=== PATIENT | female | born 1950 | race Caucasian/White ===

== ENCOUNTER 2017-03-10 08:04 | Emergency (ER) | payer OTHER, SELFPAY ==
[~2017-03-10] VITALS: Ht 157.5 cm; Wt 52.3 kg
[~2017-03-10 08:04] MED LIST: /HYDR10TAB PO; ATIV2TAB PO; BENA25CA PO; CORE25TA PO; CYCL5TAB PO; FOLI1TAB86 PO; HYDRO50TAB PO; LOSA50TA20 PO; NICO21PAT EXT; OXAZ10CA PO; OXAZ15CA PO; VITA100T2 PO; [UNRECOGNIZED DRUG - OTHER] OR; [UNRECOGNIZED DRUG - OTHER] TOP
[2017-03-10 08:27] VITALS: BP 188/110
[2017-03-10] MEDS ORDERED: COLA100C5 PO (08:50)
[2017-03-10] MEDS ORDERED: NORCOTAB PO (08:50)
[2017-03-10] MEDS ORDERED: ANUS25SU PR (08:50)
[2017-03-10] MEDS ORDERED: NORCO, ANEXSIA 5/325MG TABLET (HYDROcodone/ACETAMINOPHEN) PO ONE (09:00)
[2017-03-10] MEDS ORDERED: DOCUSATE SODIUM 100 MG CAP PO ONE (09:00)
== END 2017-03-10 09:00 | disposition home or self-care (01) ==
LOC: M ED 08:04
DX: K64.5 Perianal venous thrombosis (principal); K64.8 Other hemorrhoids; I10 Essential (primary) hypertension; Z91.19 Patient's noncompliance with other medical treatment and regimen; F17.210 Nicotine dependence, cigarettes, uncomplicated

== ENCOUNTER → 2017-04-15 | Outpatient (CLI) | payer MEDICARE | LOC: M ONCR 13:10 | DX: C44.520 Squamous cell carcinoma of anal skin (principal) | CPT/HCPCS: G0463 ==

== ENCOUNTER → 2017-04-21 | Outpatient (REF) | payer MEDICARE ==
[2017-04-21 15:29] LABS: INR 0.89; PROTHROMBIN TIME 12.1 SECONDS (12.4-14.5)
[2017-04-21 15:30] LABS: PARTIAL THROMBOPLASTIN TIME 31.3 SECONDS (26.8-37.9)
== END ==
LOC: M LAB REF 15:07
DX: C21.1 Malignant neoplasm of anal canal (principal)
CPT/HCPCS: 85610

== ENCOUNTER → 2017-04-27 | Outpatient (CLI) | payer MEDICAID, SELFPAY ==
[~2017-04-27] MED LIST changes: -/HYDR10TAB PO; -ATIV2TAB PO; -BENA25CA PO; -CORE25TA PO; -CYCL5TAB PO; -FOLI1TAB86 PO; -HYDRO50TAB PO; +LIDOCAINE 2% MDV 20 ML VIAL As Ordered; -LOSA50TA20 PO; +MIDAZOLAM INJ 2 MG/2 ML VIAL (J2250) As Ordered; -NICO21PAT EXT; -OXAZ10CA PO; -OXAZ15CA PO; -VITA100T2 PO; -[UNRECOGNIZED DRUG - OTHER] OR; -[UNRECOGNIZED DRUG - OTHER] TOP; +ceFAZolin 1GM INJ (J0690 PER 500MG) As Ordered; +fentaNYL 100 MCG/2 ML INJECTION (J3010) As Ordered
== END | disposition home or self-care (01) ==
LOC: M IRPRO 07:00
DX: C21.0 Malignant neoplasm of anus, unspecified (principal)
CPT/HCPCS: 36561

== ENCOUNTER 2017-05-13 09:00 | Outpatient (RCR) | payer MEDICAID | END 2017-05-19 | LOC: M ONCR 09:00 | DX: C21.0 Malignant neoplasm of anus, unspecified (principal) | CPT/HCPCS: 77334 ==

== ENCOUNTER → 2017-05-13 | Outpatient (CLI) | payer MEDICAID | LOC: M RAD 10:17 | DX: C21.0 Malignant neoplasm of anus, unspecified (principal); Z88.2 Allergy status to sulfonamides ==

== ENCOUNTER → 2017-05-18 | Outpatient (CLI) | payer MEDICAID | LOC: M PLARAD 11:28 | DX: C21.0 Malignant neoplasm of anus, unspecified (principal); R92.8 Other abnormal and inconclusive findings on diagnostic imaging of breast | CPT/HCPCS: 78815 ==

== ENCOUNTER 2017-05-20 10:01 | Outpatient (RCR) | payer MEDICARE, MEDICAID | END 2017-06-16 | LOC: M ONCR 10:01 | DX: C21.0 Malignant neoplasm of anus, unspecified (principal) | CPT/HCPCS: 77300 ==

== ENCOUNTER → 2017-06-03 | Outpatient (CLI) | payer MEDICARE, MEDICAID ==
[~2017-06-03] MED LIST changes: +LIDOCAINE 1% MDV 20ML VIAL As Ordered; -LIDOCAINE 2% MDV 20 ML VIAL As Ordered; -MIDAZOLAM INJ 2 MG/2 ML VIAL (J2250) As Ordered; -ceFAZolin 1GM INJ (J0690 PER 500MG) As Ordered; -fentaNYL 100 MCG/2 ML INJECTION (J3010) As Ordered
== END ==
LOC: M RAD 08:07 → M RADPRO 08:07
DX: C50.811 Malignant neoplasm of overlapping sites of right female breast (principal); C50.919 Malignant neoplasm of unspecified site of unspecified female breast (principal); N63.10 Unspecified lump in the right breast, unspecified quadrant; Z85.038 Personal history of other malignant neoplasm of large intestine; Z79.899 Other long term (current) drug therapy; Z88.2 Allergy status to sulfonamides
CPT/HCPCS: 19083

== ENCOUNTER → 2017-06-04 | Outpatient (CLI) | payer MEDICARE, MEDICAID | LOC: M RAD 10:20 | DX: N63.10 Unspecified lump in the right breast, unspecified quadrant (principal); C50.811 Malignant neoplasm of overlapping sites of right female breast; C21.0 Malignant neoplasm of anus, unspecified | CPT/HCPCS: 77066 ==

== ENCOUNTER 2017-06-17 10:45 | Outpatient (RCR) | payer MEDICARE, MEDICAID | END 2017-07-17 | LOC: M ONCR 10:45 | DX: C21.0 Malignant neoplasm of anus, unspecified (principal) | CPT/HCPCS: 77336 ==

== ENCOUNTER → 2017-07-01 | Outpatient (CLI) | payer MEDICARE, MEDICAID | LOC: M WHC 10:25 | DX: Z79.811 Long term (current) use of aromatase inhibitors (principal); Z85.3 Personal history of malignant neoplasm of breast | CPT/HCPCS: 77080 ==

== ENCOUNTER → 2017-08-12 | Outpatient (CLI) | payer MEDICARE, MEDICAID ==
[~2017-08-12] MED LIST changes: -LIDOCAINE 1% MDV 20ML VIAL As Ordered; +LIDOCAINE 2% MDV 20 ML VIAL As Ordered
== END | disposition home or self-care (01) ==
LOC: M IRPRO 10:57
DX: Z45.2 Encounter for adjustment and management of vascular access device (principal); C21.0 Malignant neoplasm of anus, unspecified
CPT/HCPCS: 36590

== ENCOUNTER → 2017-08-18 | Outpatient (CLI) | payer MEDICARE, MEDICAID | LOC: M ONCR 10:29 | DX: C21.0 Malignant neoplasm of anus, unspecified (principal) | CPT/HCPCS: G0463 ==

== ENCOUNTER → 2017-08-24 | Outpatient (CLI) | payer MEDICARE, MEDICAID ==
[2017-08-24 11:03] LABS: HEMATOCRIT 32.5 % (36.0-47.0); HEMOGLOBIN 11.3 g/dl (12.0-15.5); MEAN CORPUSCULAR HEMOGLOBIN 32.5 pg (27.0-33.0); MEAN CORPUSCULAR HGB CONC 34.8 g/dl (32.0-36.5); MEAN CORPUSCULAR VOLUME 93.4 fl (80.0-96.0); PLATELET COUNT, AUTOMATED 473 10^3/uL (150-450); RED BLOOD COUNT 3.48 10^6/uL (4.00-5.40); RED CELL DISTRIBUTION WIDTH 17.4 % (11.5-14.5); WHITE BLOOD COUNT 7.4 10^3/uL (4.0-10.0)
[2017-08-24 11:16] LABS: INR 0.91; PROTHROMBIN TIME 12.3 SECONDS (12.4-14.5)
[2017-08-24 11:36] LABS: TOTAL 25(OH) VITAMIN D 21.1 NG/ML (30.0-100.0)
[2017-08-24 11:45] LABS: ALBUMIN 3.1 GM/DL (3.2-5.2); ALBUMIN/GLOBULIN RATIO 0.84 (1.00-1.93); ALKALINE PHOSPHATASE 78 U/L (45-117); ALT/SGPT 15 U/L (12-78); ANION GAP 6 MEQ/L (8-16); AST/SGOT 19 U/L (7-37); BILIRUBIN,TOTAL 0.3 MG/DL (0.2-1.0); BLOOD UREA NITROGEN 5 MG/DL (7-18); CALCIUM LEVEL 9.1 MG/DL (8.8-10.2); CARBON DIOXIDE LEVEL 30 MEQ/L (21-32); CHLORIDE LEVEL 99 MEQ/L (98-107); CHOLESTEROL LEVEL 298 MG/DL (<200); CHOLESTEROL RISK RATIO 6.081 (<5); CREATININE FOR GFR 0.61 MG/DL (0.55-1.30); GLOMERULAR FILTRATION RATE > 60.0 (>45); GLUCOSE, FASTING 99 MG/DL (70-100); HDL CHOLESTEROL 49 MG/DL (>40); LDL CHOLESTEROL 210.2 MG/DL (<100); NON-HDL-C 249 MG/DL; POTASSIUM SERUM 3.2 MEQ/L (3.5-5.1); SODIUM LEVEL 135 MEQ/L (136-145); TOTAL PROTEIN 6.8 GM/DL (6.4-8.2); TRIGLYCERIDES LEVEL 194 MG/DL (<150)
== END ==
LOC: M LAB 10:35
DX: Z01.818 Encounter for other preprocedural examination (principal); I10 Essential (primary) hypertension; Z79.01 Long term (current) use of anticoagulants
CPT/HCPCS: 71046

== ENCOUNTER → 2017-11-25 | Outpatient (CLI) | payer MEDICARE, MEDICAID ==
[2017-11-25 10:07] LABS: ANION GAP 10 MEQ/L (8-16); BLOOD UREA NITROGEN 7 MG/DL (7-18); CALCIUM LEVEL 9.5 MG/DL (8.8-10.2); CARBON DIOXIDE LEVEL 29 MEQ/L (21-32); CHLORIDE LEVEL 99 MEQ/L (98-107); GLOMERULAR FILTRATION RATE > 60.0 (>45); GLUCOSE, FASTING 96 MG/DL (70-100); POTASSIUM SERUM 3.4 MEQ/L (3.5-5.1); SODIUM LEVEL 138 MEQ/L (136-145)
== END ==
LOC: M LAB 08:53
DX: Z01.812 Encounter for preprocedural laboratory examination (principal); Z85.048 Personal history of other malignant neoplasm of rectum, rectosigmoid junction, and anus
CPT/HCPCS: 80048

== ENCOUNTER → 2018-01-04 | Outpatient (CLI) | payer MEDICARE ==
[2018-01-04 09:30] LABS: HEMATOCRIT 34.8 % (36.0-47.0); HEMOGLOBIN 11.7 g/dl (12.0-15.5); MEAN CORPUSCULAR HEMOGLOBIN 28.7 pg (27.0-33.0); MEAN CORPUSCULAR HGB CONC 33.6 g/dl (32.0-36.5); MEAN CORPUSCULAR VOLUME 85.3 fl (80.0-96.0); PLATELET COUNT, AUTOMATED 514 10^3/uL (150-450); RED BLOOD COUNT 4.08 10^6/uL (4.00-5.40); RED CELL DISTRIBUTION WIDTH 14.3 % (11.5-14.5); WHITE BLOOD COUNT 6.6 10^3/uL (4.0-10.0)
[2018-01-04 09:42] LABS: INR 0.86; PROTHROMBIN TIME 11.8 SECONDS (12.1-14.4)
[2018-01-04 10:02] LABS: ALBUMIN 3.7 GM/DL (3.2-5.2); ALBUMIN/GLOBULIN RATIO 0.95 (1.00-1.93); ALKALINE PHOSPHATASE 94 U/L (45-117); ALT/SGPT 17 U/L (12-78); ANION GAP 10 MEQ/L (8-16); AST/SGOT 15 U/L (7-37); BILIRUBIN,TOTAL 0.3 MG/DL (0.2-1.0); BLOOD UREA NITROGEN 7 MG/DL (7-18); CALCIUM LEVEL 9.3 MG/DL (8.8-10.2); CARBON DIOXIDE LEVEL 29 MEQ/L (21-32); CHLORIDE LEVEL 100 MEQ/L (98-107); CHOLESTEROL LEVEL 278 MG/DL (<200); CREATININE FOR GFR 0.79 MG/DL (0.55-1.30); GLOMERULAR FILTRATION RATE > 60.0 (>45); GLUCOSE, FASTING 96 MG/DL (70-100); HDL CHOLESTEROL 51 MG/DL (>40); LDL CHOLESTEROL 194 MG/DL (<100); NON-HDL-C 227 MG/DL; POTASSIUM SERUM 3.6 MEQ/L (3.5-5.1); SODIUM LEVEL 139 MEQ/L (136-145); TOTAL PROTEIN 7.6 GM/DL (6.4-8.2); TRIGLYCERIDES LEVEL 166 MG/DL (<150)
== END ==
LOC: M LAB 08:24
DX: Z01.818 Encounter for other preprocedural examination (principal); I10 Essential (primary) hypertension; M54.30 Sciatica, unspecified side; M51.36 Other intervertebral disc degeneration, lumbar region
CPT/HCPCS: 72110

== ENCOUNTER 2018-01-19 07:16 | Day surgery (SDC) | payer MEDICARE, MEDICAID ==
[~2018-01-19 07:16] MED LIST changes: +ACETAMINOPHEN 325 MG TAB PO; -LIDOCAINE 2% MDV 20 ML VIAL As Ordered; +PHENYLEPHRINE HCL 10 % OPHTH. SOL 5ML OD; +PROPARACAINE 0.5% OPHTH SOL 15ML OD
[2018-01-19] MEDS ORDERED: MIDAZOLAM INJ 2 MG/2 ML VIAL (J2250) As Ordered (07:17)
[2018-01-19] MEDS: PHENYLEPHRINE 2.5% OPHTH SOL 2ML OD (08:06)
[2018-01-19] MEDS: CYCLOPENTOLATE 2% OPHTH SOLN 2ML BTL OD (08:06)
[2018-01-19] MEDS: TROPICAMIDE 1% OPHTH SOLN 2ML OD (08:06)
[2018-01-19] MEDS: OFLOXACIN 0.3 % (OCUFLOX) OPTH SOL 5ML OD (08:06)
[2018-01-19] MEDS: LIDOCAINE 3.5 % 1ML OPHTH TOPICAL GEL OU (08:06)
[2018-01-19] MEDS: POVIDONE-IODINE 5% OPHTH PREP SOL 30ML As Ordered (09:22)
[2018-01-19] MEDS: BALANCED SALT IRRIGATION SOLUTION 500ML BAG (FOR OR EYE MACHINE) As Ordered (09:24)
[2018-01-19] MEDS: HEALON DUET (HEALON 10MG/ML 0.55ML & HEALON ENDOCOAT 30MG/ML 0.85ML) As Ordered (09:24)
[2018-01-19] MEDS: CEFUROXIME 1MG/0.1ML INTRACAMERAL INJ As Ordered (09:24)
[2018-01-19] MEDS: LIDOCAINE 1% SDV 5 ML VIAL As Ordered (09:24)
[2018-01-19] MEDS ORDERED: fentaNYL 100 MCG/2 ML INJECTION (J3010) As Ordered (09:24)
[2018-01-19] MEDS: TRYPAN BLUE 0.06 % 2.25 ML OPHTH SYR (VISIONBLUE) As Ordered (09:24)
[2018-01-19] MEDS ORDERED: ONDANSETRON 4MG/2ML VIAL (J2405) IV (10:00)
[2018-01-19] MEDS ORDERED: TRIMETHOBENZAMIDE 300 MG CAP PO (10:00)
[2018-01-19] MEDS: KETOROLAC 0.5% OPHTH SOLN OD (10:00)
== END 2018-01-19 10:16 | disposition home or self-care (01) ==
LOC: M SDC 07:16
DX: H25.11 Age-related nuclear cataract, right eye (principal); I10 Essential (primary) hypertension; E03.9 Hypothyroidism, unspecified; C21.0 Malignant neoplasm of anus, unspecified; C50.919 Malignant neoplasm of unspecified site of unspecified female breast; M12.9 Arthropathy, unspecified; Z88.2 Allergy status to sulfonamides; Z79.899 Other long term (current) drug therapy; Z92.21 Personal history of antineoplastic chemotherapy; Z92.3 Personal history of irradiation; Z78.0 Asymptomatic menopausal state
CPT/HCPCS: 66984

== ENCOUNTER 2018-02-16 06:40 | Day surgery (SDC) | payer MEDICARE, MEDICAID ==
[2018-02-16] MEDS ORDERED: CYCLOPENTOLATE 2% OPHTH SOLN 2ML BTL OS (07:00)
[2018-02-16] MEDS ORDERED: PHENYLEPHRINE HCL 10 % OPHTH. SOL 5ML OS (07:00)
[2018-02-16] MEDS: PHENYLEPHRINE 2.5% OPHTH SOL 2ML OS (07:22)
[2018-02-16] MEDS: TROPICAMIDE 1% OPHTH SOLN 2ML OS (07:23)
[2018-02-16] MEDS: LIDOCAINE 3.5 % 1ML OPHTH TOPICAL GEL OU (07:23)
[2018-02-16] MEDS: OFLOXACIN 0.3 % (OCUFLOX) OPTH SOL 5ML OS (07:23)
[2018-02-16] MEDS ORDERED: fentaNYL 100 MCG/2 ML INJECTION (J3010) As Ordered (08:23)
[2018-02-16] MEDS ORDERED: MIDAZOLAM INJ 2 MG/2 ML VIAL (J2250) As Ordered (08:23)
[2018-02-16] MEDS: POVIDONE-IODINE 5% OPHTH PREP SOL 30ML As Ordered (08:46)
[2018-02-16] MEDS: LIDOCAINE 1% SDV 5 ML VIAL As Ordered (08:48)
[2018-02-16] MEDS: BALANCED SALT IRRIGATION SOLUTION 500ML BAG (FOR OR EYE MACHINE) As Ordered (08:48)
[2018-02-16] MEDS: HEALON DUET (HEALON 10MG/ML 0.55ML & HEALON ENDOCOAT 30MG/ML 0.85ML) As Ordered (08:48)
[2018-02-16] MEDS: CEFUROXIME 1MG/0.1ML INTRACAMERAL INJ As Ordered (08:49)
== END 2018-02-16 09:29 | disposition home or self-care (01) ==
LOC: M SDC 06:40
DX: H25.12 Age-related nuclear cataract, left eye (principal); I10 Essential (primary) hypertension; E03.9 Hypothyroidism, unspecified; Z92.3 Personal history of irradiation; Z92.21 Personal history of antineoplastic chemotherapy; Z79.899 Other long term (current) drug therapy; F17.210 Nicotine dependence, cigarettes, uncomplicated; Z85.3 Personal history of malignant neoplasm of breast; Z85.09 Personal history of malignant neoplasm of other digestive organs
CPT/HCPCS: 66984

== ENCOUNTER → 2018-05-03 | Outpatient (CLI) | payer MEDICARE, MEDICAID ==
[~2018-05-03] MED LIST changes: +/HYDR10TAB PO; -ACETAMINOPHEN 325 MG TAB PO; +AMBI10TA PO; +AMLO10TA5 PO; +ANUS25SU PR; +ATIV2TAB PO; +BENA25CA PO; +COLA100C5 PO; +CORE25TA PO; +CYCL5TAB PO; +EXEM25TA PO; +FOLI1TAB86 PO; +HYDR12CA PO; +HYDRO50TAB PO; +K-TA1TAB PO; +LETR2.5T2 PO; +LEVO25TA5 PO; +LOSA50TA20 PO; +NICO21PAT EXT; +NORCOTAB PO; +OXAZ10CA PO; +OXAZ15CA PO; +PERC5TAB12 PO; -PHENYLEPHRINE HCL 10 % OPHTH. SOL 5ML OD; +POTA10TA67 PO; -PROPARACAINE 0.5% OPHTH SOL 15ML OD; +TAMO20TA8 PO; +VITA100T2 PO; +VITA50005 PO; +[UNRECOGNIZED DRUG - CODE] PO; +[UNRECOGNIZED DRUG - OTHER] OR; +[UNRECOGNIZED DRUG - OTHER] TOP
[2018-05-03 09:02] LABS: HEMATOCRIT 38.3 % (36.0-47.0); MEAN CORPUSCULAR HEMOGLOBIN 29.1 pg (27.0-33.0); MEAN CORPUSCULAR HGB CONC 33.9 g/dl (32.0-36.5); MEAN CORPUSCULAR VOLUME 85.7 fl (80.0-96.0); PLATELET COUNT, AUTOMATED 465 10^3/uL (150-450); RED BLOOD COUNT 4.47 10^6/uL (4.00-5.40); WHITE BLOOD COUNT 8.3 10^3/uL (4.0-10.0)
--- NOTE | 2018-05-03 09:13 | REP ---
Chest two views HISTORY: Hypertension Comparison: 08/24/2017 The lungs are clear. The heart is normal in size. The pulmonary vasculature is normal in appearance. The bony structure is intact. IMPRESSION: No acute disease. Electronically Signed by Bharath Marcelo MD 05/03/2018 09:04 A
[2018-05-03 09:14] LABS: INR 0.91; PROTHROMBIN TIME 12.3 SECONDS (12.1-14.4)
[2018-05-03 09:32] LABS: ALT/SGPT 18 U/L (12-78); BILIRUBIN,TOTAL 0.5 MG/DL (0.2-1.0); BLOOD UREA NITROGEN 11 MG/DL (7-18); CALCIUM LEVEL 9.2 MG/DL (8.8-10.2); CARBON DIOXIDE LEVEL 27 MEQ/L (21-32); CHLORIDE LEVEL 101 MEQ/L (98-107); CHOLESTEROL LEVEL 316 MG/DL (<200); CHOLESTEROL RISK RATIO 6.448 (<5); CREATININE FOR GFR 0.86 MG/DL (0.55-1.30); GLOMERULAR FILTRATION RATE > 60.0 (>45); GLUCOSE, FASTING 100 MG/DL (70-100); HDL CHOLESTEROL 49 MG/DL (>40); LDL CHOLESTEROL 229 MG/DL (<100); NON-HDL-C 267 MG/DL; POTASSIUM SERUM 3.6 MEQ/L (3.5-5.1); SODIUM LEVEL 137 MEQ/L (136-145); TOTAL PROTEIN 7.5 GM/DL (6.4-8.2); TRIGLYCERIDES LEVEL 192 MG/DL (<150)
[2018-05-03 12:04] LABS: HEMOGLOBIN A1c 5.6 %
[2018-05-03 14:12] LABS: TOTAL 25(OH) VITAMIN D 82.2 NG/ML (30.0-100.0)
--- NOTE | 2018-05-04 08:24 | ECGEPIP ---
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
== END ==
LOC: M LAB 08:32
PROVIDERS: ATTEND Family Medicine
DX: I10 Essential (primary) hypertension (principal); E03.9 Hypothyroidism, unspecified; R53.83 Other fatigue; Z79.899 Other long term (current) drug therapy

== ENCOUNTER 2018-06-12 20:54 | Inpatient (IN) | payer MEDICARE, MEDICAID ==
[~2018-06-12] VITALS: Ht 157.5 cm; Wt 46.3 kg
[2018-06-12] MEDS ORDERED: ACET1TAB16 PO (21:20)
[2018-06-12] MEDS ORDERED: SPIR-10 PO (21:20)
[2018-06-12] MEDS ORDERED: TETRACAINE 0.5% OPHTH SOLN 4ML OU ONE (21:30)
[2018-06-12] MEDS ORDERED: TROPICAMIDE 0.5% OPHTH SOLN 15 ML OU ONE (21:30)
[2018-06-12] MEDS ORDERED: LORazepam 1 MG TAB PO STA (22:18)
[2018-06-12 23:28] LABS: BASO # 0.1 10^3/uL (0.0-0.2); BASO % 0.5 % (0.0-1.0); EOS # 0.1 10^3/uL (0.0-0.50); EOS % 0.3 % (0.0-3.0); HEMATOCRIT 36.4 % (36.0-47.0); HEMOGLOBIN 12.5 g/dl (12.0-15.5); LYMPH # 1.6 10^3/uL (1.5-4.5); LYMPH % 10.5 % (24.0-44.0); MEAN CORPUSCULAR HEMOGLOBIN 28.7 pg (27.0-33.0); MEAN CORPUSCULAR HGB CONC 34.3 g/dl (32.0-36.5); MEAN CORPUSCULAR VOLUME 83.7 fl (80.0-96.0); MONO % 6.5 % (0.0-5.0); NEUTROPHILS # 12.2 10^3/uL (1.8-7.7); NEUTROPHILS % 81.7 % (36.0-66.0); PLATELET COUNT, AUTOMATED 562 10^3/uL (150-450); RED BLOOD COUNT 4.35 10^6/uL (4.00-5.40)
[2018-06-12 23:38] LABS: INR 0.98; PROTHROMBIN TIME 13.1 SECONDS (12.1-14.4)
[2018-06-12 23:39] LABS: PARTIAL THROMBOPLASTIN TIME 33.7 SECONDS (25.4-37.6)
[2018-06-12 23:47] LABS: BLOOD UREA NITROGEN 7 MG/DL (7-18); CALCIUM LEVEL 9.4 MG/DL (8.8-10.2); CARBON DIOXIDE LEVEL 23 MEQ/L (21-32); CHLORIDE LEVEL 106 MEQ/L (98-107); CREATININE FOR GFR 0.82 MG/DL (0.55-1.30); GLOMERULAR FILTRATION RATE > 60.0 (>45); GLUCOSE, FASTING 108 MG/DL (70-100); SODIUM LEVEL 137 MEQ/L (136-145)
[2018-06-13] MEDS ORDERED: LORazepam 1 MG TAB PO STA
--- NOTE | 2018-06-13 01:02 | REPVR ---
EXAM: MR Angiogram Head Without Contrast, Arteries EXAM DATE/TIME: 06/13/2018 12:20 AM CLINICAL HISTORY: 68 years old, female; Signs and symptoms; Visual disturbance; Other visual defect; Patient HX: PT states blurry vision for over a week, nki, no other symptoms no priors since 2013, images sent to ad; Additional info: Visual anomaly TECHNIQUE: MR angiogram head without contrast. Exam focused on the arteries. MIP reconstructed images were created and reviewed. COMPARISON: MRA BRAIN W/O CONTRAST 07/24/2013 12:57 PM FINDINGS: Anterior circulation: Normal flow signal and luminal caliber in the petrous, cavernous and supraclinoid internal carotid arteries. Normal appearance of the anterior cerebral artery branches and middle cerebral artery branches through the MCA trifurcations. No occlusion, high-grade focal stenosis or dissection. No aneurysm. Posterior circulation: Normal distal vertebral arteries, with patent normal caliber basilar artery, and normal superior cerebellar and posterior cerebral arteries. No occlusion, high-grade stenosis or aneurysm. Right T1 segment is diminutive and the right TABLE TENDER SLUDGE is predominantly supplied by a patent posterior communicating artery IMPRESSION: Unremarkable MR angiogram of the [place] and intracranial vertebrobasilar system. No interval change. Electronically signed by: Boris Nelson On 06/13/2018 01:02:10 AM
--- NOTE | 2018-06-13 01:05 | REPVR ---
EXAM: MR Head Without Contrast EXAM DATE/TIME: 06/13/2018 12:20 AM CLINICAL HISTORY: 68 years old, female; Signs and symptoms; Visual disturbance; Patient HX: PT states blurry vision for over a week, nki, no other symptoms no priors since 2013, images sent to [facility]; Additional info: Visual anomaly TECHNIQUE: MR of the head without contrast. COMPARISON: MRI-Brain without Contrast 07/24/2013 1:06 PM FINDINGS: Multiple abnormal foci of increased diffusion and decreased ADC map signal are present in the right occipital and posterior right parietal lobe consistent with acute nonhemorrhagic small vessel infarcts, which may be embolic. Midline structures and cerebellar tonsillar position appear normal. Ventricles, cisterns and sulci are symmetrically prominent. No intracranial mass, midline shift or abnormal extra-axial fluid. No acute intracranial hemorrhage. Mild pattern of increased T2 and flair signal in supratentorial and moraima white matter. Optic chiasm and pituitary infundibulum appear normal. Normal vascular flow voids in major intracranial arteries and dural venous sinuses. Paranasal sinuses are clear. Mastoid air cells are normally aerated. Optic globes and orbits are unremarkable. IMPRESSION: Multiple small acute nonhemorrhagic infarcts, right occipital and right parietal, suggesting posterior circulation embolic process. Minimal mass effect. Mild chronic microangiopathic supratentorial white matter changes Electronically signed by: Boris Nelson On 06/13/2018 01:04:36 AM
[2018-06-13] MEDS ORDERED: ASPIRIN 325 MG TAB PO ONE (01:30)
[2018-06-13] MEDS ORDERED: K-TA1TAB PO (01:52)
[2018-06-13] MEDS ORDERED: LEVO50TA5 PO (01:52)
[2018-06-13] MEDS ORDERED: ZOLP5TAB PO (01:53)
[2018-06-13] MEDS ORDERED: ACETAMINOPH W/CODEINE #3 TAB UD PO PRN (02:15)
[2018-06-13] MEDS: ATORVASTATIN 20 MG TAB PO SCH ×2 (02:34→20:40)
[2018-06-13] MEDS: zolPIDEM TARTRATE 5 MG TAB PO SCH ×2 (02:34→20:40)
[2018-06-13 03:27] LABS: CHOLESTEROL LEVEL 304 MG/DL (<200); CHOLESTEROL RISK RATIO 7.238 (<5); HDL CHOLESTEROL 42 MG/DL (>40); LDL CHOLESTEROL 242 MG/DL (<100); NON-HDL-C 262 MG/DL; TRIGLYCERIDES LEVEL 100 MG/DL (<150)
[2018-06-13 03:30] VITALS: BP 153/88
[2018-06-13] MEDS: LEVOTHYROXINE 50MCG TABLET (0.05MG) PO SCH (05:54)
[2018-06-13 06:50] LABS: HEMATOCRIT 34.1 % (36.0-47.0); HEMOGLOBIN 11.6 g/dl (12.0-15.5); MEAN CORPUSCULAR HEMOGLOBIN 28.8 pg (27.0-33.0); MEAN CORPUSCULAR VOLUME 84.6 fl (80.0-96.0); PLATELET COUNT, AUTOMATED 494 10^3/uL (150-450); RED BLOOD COUNT 4.03 10^6/uL (4.00-5.40); WHITE BLOOD COUNT 9.8 10^3/uL (4.0-10.0)
[2018-06-13 07:20] LABS: BLOOD UREA NITROGEN 7 MG/DL (7-18); CALCIUM LEVEL 8.8 MG/DL (8.8-10.2); CARBON DIOXIDE LEVEL 25 MEQ/L (21-32); CHLORIDE LEVEL 106 MEQ/L (98-107); CHOLESTEROL LEVEL 272 MG/DL (<200); CREATININE FOR GFR 0.83 MG/DL (0.55-1.30); GLOMERULAR FILTRATION RATE > 60.0 (>45); GLUCOSE, FASTING 78 MG/DL (70-100); HDL CHOLESTEROL 40 MG/DL (>40); HEMOGLOBIN A1c 5.6 %; LDL CHOLESTEROL 215 MG/DL (<100); NON-HDL-C 232 MG/DL; POTASSIUM SERUM 4.3 MEQ/L (3.5-5.1); SODIUM LEVEL 137 MEQ/L (136-145); TRIGLYCERIDES LEVEL 84 MG/DL (<150)
[2018-06-13 08:00] VITALS: BP 141/71
--- NOTE | 2018-06-13 09:06 | REP ---
Clinical: Acute cerebrovascular infarcts . Technique: Priest scale and color Doppler evaluation using linear high frequency transducer Findings: Two-dimensional priest scale and color images demonstrate moderate mixed bilateral atheromatous plaquing normal with relatively normal laminar flow. Color Doppler interrogation demonstrates normal arterial wave patterns and velocities with no significant spectral broadening. Right vertebral artery not visualized. The left vertebral artery demonstrates normal flow direction. RIGHT (cm/s) LEFT (cm/s) ICA peak systolic velocity 67.9 93.7 ICA diastolic velocity 20.1 23.1 ECA peak systolic velocity 77.6 96.0 CCA peak systolic velocity 59.6 72.3 ICA/CCA ratio 1.1 1.3 Impression: 1. Based on set standards narrowing falls within the less than 50% range. 2. Right vertebral artery not visualized. Electronically Signed by Enzo Villafana MD 06/13/2018 08:57 A
[2018-06-13] MEDS: amLODIPine 10 MG TAB PO SCH (09:11)
[2018-06-13] MEDS: ASPIRIN 81 MG ENTERIC TAB PO SCH (09:11)
[2018-06-13] MEDS: SPIRONOLACTONE 12.5MG PER 1/2 TABLET PO SCH (09:11)
[2018-06-13] MEDS: NICOTINE 21MG/24HR 1 EA TRANSDERMAL TD SCH (11:37)
[2018-06-13 12:00] VITALS: BP 122/70
[2018-06-13 16:00] VITALS: BP 140/79
--- NOTE | 2018-06-13 19:00 | ECGEPIP ---
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 No change from 05/03/18 Electronically Signed On 06-13-2018 19:00:05 EST by Emre Ludwig
[2018-06-13 20:00] VITALS: BP 139/82
[2018-06-13] MEDS: ACETAMINOPHEN TAB 650MG DOSE (2X325MG) PO PRN (21:08)
--- NOTE | 2018-06-13 21:36 | ECHO ---
DATE OF PROCEDURE: 06/13/2018 REFERRING PHYSICIAN: Dr. Jonatan Hernandez INDICATIONS: Cerebrovascular accident. Height 157 cm, weight 48 kg. DIMENSIONS: IVS: 0.9 LV: 3.8 LVPW: 0.9 LA: 3.2 Aorta: 2.5 Mitral E wave velocity: 79 A wave: 109 E prime septal: 5.6 E prime lateral: 6.8 Left atrial volume index: 20 IVC: 0.9 FINDINGS: The study is of good technical quality. Left ventricle is of normal size with normal systolic function, I estimate left ventricular ejection fraction (LVEF) 65-70%. No segmental wall motion abnormalities are appreciated. Right ventricle also appears normal size. Both atria are normal size. Aortic valve is minimally sclerotic but has normal mobility. Mitral and tricuspid valves appear normal. Pulmonic valve was not well seen. No pericardial effusion is noted. Inferior vena cava is normal size. Aortic root appears normal. Aortic arch was not well seen. Abdominal aorta appears normal. Doppler interrogation reveals no aortic stenosis or insufficiency. There is trace mitral and tricuspid insufficiency. Unfortunately quality of TR jet was not sufficient to adequately estimate pulmonary artery pressure. Pulmonic valve was not seen. Mitral inflow pattern and tissue Doppler imaging of mitral annulus revealed grade 1 diastolic dysfunction. CONCLUSIONS: 1. Study is of good technical quality. 2. Normal left ventricular (LV) size with normal LV systolic function and grade 1 diastolic dysfunction. 3. No significant valvular disease. 4. Normal central venous pressure. 5. Unable to estimate pulmonary artery pressure. 6. No obvious explanation for cerebrovascular accident. COMMENT: Subacute bacterial endocarditis (SBE) prophylaxis is not recommended.
[2018-06-14] VITALS: BP 146/86
--- NOTE | 2018-06-14 00:23 | CR ---
DATE OF CONSULTATION: 06/13/2018 REFERRING PROVIDER: Jonatan Hernandez MD REASON FOR CONSULTATION: Suspected stroke. Elyse Ellis is a 68-year-old female with a past medical history significant for past alcohol abuse, ongoing tobacco abuse presenting with the chief complaint of difficulty with her vision. She came to [facility] because she noticed over the last few days that she had trouble with her vision. She is noted on MRI to have multiple acute infarctions of the right occipital and right parietal region. The patient had probable embolic strokes involving the posterior circulation as per radiology. It does appear to be the case after looking at the imaging. Her cholesterol is truly out of control with the total cholesterol of 272, low-density lipoprotein (LDL) of 215, high-density lipoprotein (HDL) of 40, thyroid-stimulating hormone (TSH) of 3.3. The patient has been started on aspirin. She has also been placed on Lipitor 40 mg which she states she has been on in the past. The patient is agreeable to quit smoking. She has a patch on right now. Other than her vision she denies any other acute neurological events. REVIEW OF SYSTEMS: A 14-point review of systems was obtained and is negative except as per history of present illness. PAST MEDICAL HISTORY: Hypertension, hyperlipidemia, chronic neck pain, history of vertigo, history of tobacco abuse, alcohol abuse, an episode of syncope, history of lacunar strokes, chronic neck pain. PAST SURGICAL HISTORY: As per history of present illness. ALLERGIES: No known drug allergies. SOCIAL HISTORY: She smokes one pack of tobacco per day. She averages about three beers per day in the past. She states presently she has stopped drinking. She denies any recreational drug use. FAMILY HISTORY: Mother with ischemic heart disease and kidney disease. ALLERGIES: No known drug allergies. HOME MEDICATIONS: - Lipitor 40 mg by mouth daily - levothyroxine 50 mcg by mouth daily - spironolactone daily - zolpidem 5 mg by mouth at bedtime - vitamin D 50,000 international units by mouth weekly - amlodipine 10 mg by mouth daily PHYSICAL EXAMINATION: Blood pressure 122/70, pulse rate 85, respiratory rate 18, temperature is 98.7 degrees Fahrenheit, oxygenation 95% on room air. The patient is awake, alert, oriented to person, place and time. Speech language comprehension, repetition are intact. Pupils are 3 mm round, reactive to light. Extraocular movements are intact in all directions. The patient has some patchy vision loss along left visual field she states. Sensory is intact to light touch involving the V1, V2, V3 bilaterally. No facial asymmetry of activation. Palate elevates symmetrically. Tongue is midline. No weakness of sternocleidomastoids bilaterally. Hearing is subjectively equal to finger rub. Next, there is no pronator drift. Strength is 5/5 including bilateral deltoids, biceps, triceps, handgrip, iliopsoas, quadriceps, anterior tibialis. Deep tendon reflexes are 2+ throughout. Babinski signs are absent. Sensory is intact to light touch in all four extremities. Coordination: Normal [id number]-fciv without any signs of ataxia or dysmetria. ASSESSMENT: Acute ischemic stroke thought to be embolic involving the right occipital parietal area. PLAN: Obtain transesophageal echocardiogram (RICKIE), physical therapy (PT)/occupational therapy (OT) evaluation, continue telemetry monitoring. Start aspirin 81 mg by mouth daily. Avoid further use of tobacco. Keep systolic blood pressures 140-180 times next 48 hours to allow for permissive hypertension.
[2018-06-14 04:00] VITALS: BP 155/84
[2018-06-14] MEDS: LEVOTHYROXINE 50MCG TABLET (0.05MG) PO SCH (05:17)
--- NOTE | 2018-06-14 06:15 | HPE ---
DATE OF ADMISSION: 06/12/2018 PRIMARY CARE PROVIDER: Dr. Horner ATTENDING PHYSICIAN: Dr. eHrnandez HUMAN GEOGRAPHY INSTRUCTOR: Dr. Donnelly, neurologist. CHIEF COMPLAINT: Vision problem. HISTORY OF PRESENT ILLNESS (HPI): The patient is a 68-year-old white female with history of high blood pressure as well as breast cancer and anal cancer, presents to the hospital for evaluation of the vision problem. History provided by herself, and she states in the last few days, she has trouble to see; particularly, she states she has some visual field deficit but cannot give any details. She was concerned to have a stroke and decided to come to the emergency room (ER) for further evaluation. Denies headache. No focal weakness or numbness or trouble to swallow. In the ER, she had a head CT as well as MRI, which demonstrated she had acute ischemic stroke in her right occipital area. She was given aspirin in the ER; meanwhile, medicine service called for the admission. REVIEW OF SYSTEMS: Denies fever. No chills. No headache. No blurred vision, but positive visual field deficit. No double vision. No chest pain. No nausea. No vomiting. No abdominal pain. No tingling, numbness, or focal weakness. All other systems reviewed were negative. PAST MEDICAL HISTORY: 1. Hypertension. 2. Right breast cancer. 3. Anal cancer status post chemotherapy and radiation therapy. PAST SURGICAL HISTORY: 1. Bilateral mastectomy for breast cancer. 2. Bilateral cataract surgery. ALLERGIES: Allergic to SULFA. SOCIAL HISTORY: Smoked cigarettes 1/2 pack a day for more than 40 years. No alcohol abuse. No illicit drug use. She has two daughters, who are in [place]. She lives by herself, and she is FULL CODE. FAMILY HISTORY: Both parents . One brother has had a heart attack. MEDICATIONS: - Synthroid 50 mcg by mouth daily - spironolactone 12.5 mg by mouth daily - amlodipine 10 mg by mouth daily PHYSICAL EXAMINATION: VITAL SIGNS: Temperature 97, heart rate is 95, respirations 20, blood pressure 155/86, oxygen saturation 96% on room air. GENERAL: She is awake, alert, oriented times three. She is not in acute distress. HEENT: Atraumatic. Pupils equal, round, reactive to light. Extraocular muscles are intact. No jaundice. Ear, nose, throat normal. Mouth mucosa not dry. NECK: No jugular venous distention (JVD). No bruits. LUNGS: Clear. No wheezing. No crackles. HEART: S1, S2, regular. No murmur. ABDOMEN: Soft. Bowel sounds positive. Nontender. No edema in bilateral lower extremities. NEUROLOGICAL: Nonfocal and cranial nerve II-XII grossly intact. Per ER attending physician, her visual acuity is 20/20 but she does have some deficit in her visual field in the left eye. Also, her fundus was normal after dilatation of her pupils. SKIN: No rash. PSYCHOLOGICAL: No acute psychosis. DIAGNOSTIC LAB STUDIES: Include the following: CBC and differential showed WBC 15, hemoglobin and hematocrit 12.5 over 36, platelets 562. Sodium 137, potassium 5.0, chloride 106, bicarbonate 23, BUN 7, creatinine 0.8, glucose 108. Brain MRA was normal, but brain MRI demonstrated multiple abnormal foci of increased diffusion and decreased signal present in the right occipital and the posterior right parietal lobe, consistent with acute nonhemorrhagic small vessel infarcts, which may be embolic. IMPRESSION: 1. Acute ischemic stroke in right occipital brain. 2. Hypertension. 3. History of breast cancer as well as anal cancer. PLAN: Patient will be admitted to the progressive care unit (PCU). Will continue her home medications. Will start aspirin as well as Lipitor. Will schedule carotid Doppler and schedule echocardiogram with bubble study. Will consult neurology. Dr. Donnelly.
--- NOTE | 2018-06-14 07:30 | ECGEPIP ---
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
[2018-06-14 08:00] VITALS: BP 145/81
[2018-06-14] MEDS: NICOTINE 21MG/24HR 1 EA TRANSDERMAL TD SCH (08:11)
[2018-06-14] MEDS: SPIRONOLACTONE 12.5MG PER 1/2 TABLET PO SCH (08:11)
[2018-06-14] MEDS: ASPIRIN 81 MG ENTERIC TAB PO SCH (08:12)
[2018-06-14] MEDS: amLODIPine 10 MG TAB PO SCH (08:12)
[2018-06-14] MEDS ORDERED: PREVNAR 13 VACCINE SYRINGE (CPT CODE:90670) IM ONE (09:00)
[2018-06-14] MEDS ORDERED: FLUBLOK(EGG FREE)(QUAD)INFLUENZA VACC 0.5ML SYRINGE (90682)18YRS&OLDER IM ONE (09:00)
[2018-06-14] MEDS ORDERED: VITAMIN D 50,000 UNITS CAPSULE (ERGOCALCIFEROL 1.25MG) PO SCH (09:00)
--- NOTE | 2018-06-14 11:07 | IPNPDOC ---
Text Note Date of Service The patient was seen on 06/14/18. NOTE Subjective: Patient is seen at bedside. She states that she is feeling okay today. She will be having a transesophageal echo with Dr. Price tomorrow. There have been no events on telemetry overnight. She denies any nausea, vomiting, fevers, chills, shortness of breath, chest pain, or palpitations. She states that her vision is a little bit that it was yesterday but is mostly the same Objective: Vitals: See below Gen.: Elderly female who is alert and cooperative, in no acute distress HEENT: Pupils are equal, round, and reactive to light and accommodation. Extraocular eye movements are intact in all directions. No facial asymmetry Heart: Regular rate and rhythm; no murmurs, gallops, or rubs Lungs: Clear to auscultation bilaterally; no wheezes, rhonchi, or rales Abdomen: Positive bowel sounds, nontender to palpation Extremities: Pulses bilaterally in all 4 extremities, no bilateral lower e xtremity edema Neuro: Cranial nerves II through XII grossly intact, though the patient has some patchy left visual field loss. Visual acuity is equal and intact bilaterally. Patient has no sensory deficits, she has 5 out of 5 muscle strength bilaterally. Laboratory data: See below DVT prophylaxis?: Teds Assessment: This is a 68-year-old female who is admitted for acute ischemic stroke, thought to be embolic involving the right occipital parietal area Plan: 1. Acute ischemic stroke. This is thought to be embolic involving the right occipital parietal area. Patient is on aspirin 81 mg daily, as well as statin therapy. Dr. Juarez, from neurology, has been consulted and we appreciate his assistance. Dr. Price, from cardiology, will be taking the patient for a transesophageal echocardiogram tomorrow. She continues on Lipitor. Systolic blood pressure will be kept between 140-180 for the next 24 hours. PT and OT have been ordered. 2. Hypertension. We will keep systolic blood pressure between 140-180, to allow permissive hypertension. We will continue her home medications of Norvasc and Aldactone within those parameters. 3. History of breast cancer 4. History of anal cancer 5. Tobacco abuse. Patient is on a nicotine patch 6. Hypothyroidism. Continue home levothyroxine Disposition: Pending clinical improvement, study results, PT and OT VS,Rene I+O VS, Fishbone, I+O Vital Signs Date Time Temp Pulse Resp B/P (MAP) Pulse Ox O2 Delivery O2 Flow Rate FiO2 06/14/18 08:12 81 145/81 06/14/18 08:00 99.2 18 96 06/13/18 03:19 Room Air I&O- Last 24 Hours up to 6 AM 06/14/18 06:00 Intake Total 940 ml Output Total 1000 ml Balance -60 ml GME ATTESTATION GME ATTESTATION My faculty preceptor for this patient encounter was physically present during the encounter and was fully available. All aspects of the patient interview, examination, medical decision making process, and medical care plan development were reviewed and approved by the faculty preceptor. The faculty preceptor is aware and concurs with the plan as stated in the body of this note and will attest to such by his/her cosignature. SEA FAUST DO Jun 14, 2018 11:07
[2018-06-14 12:00] VITALS: BP 155/83
[2018-06-14 16:00] VITALS: BP 145/85
--- NOTE | 2018-06-14 19:27 | IPN ---
DATE: 06/14/2018 I was asked by Dr. Hernandez to perform transesophageal echocardiogram on Mrs. Ellis because she presented with a stroke suggestive of cardioembolic etiology. I met with the patient this morning and again tonight, explained the rationale for the procedure, its nature, potential complications and potential alteration of management depending on findings. Her numerous questions were answered. She signed appropriate consent. I examined the patient and reviewed her history and labs in the chart. The procedure is tentatively scheduled for tomorrow morning, 7:30, in the operating room. She will be nothing by mouth since midnight.
[2018-06-14 20:00] VITALS: BP 162/84
[2018-06-14] MEDS: zolPIDEM TARTRATE 5 MG TAB PO SCH (21:17)
[2018-06-14] MEDS: ATORVASTATIN 20 MG TAB PO SCH (21:26)
[2018-06-14] MEDS: ACETAMINOPHEN TAB 650MG DOSE (2X325MG) PO PRN (21:27)
[2018-06-15] VITALS: BP 154/78
[2018-06-15 04:00] VITALS: BP 125/83
[2018-06-15] MEDS: LEVOTHYROXINE 50MCG TABLET (0.05MG) PO SCH (06:23)
[2018-06-15] MEDS ORDERED: PROPOFOL 200 MG/20 ML VIAL As Ordered ONE (07:16)
[2018-06-15] MEDS ORDERED: MIDAZOLAM INJ 2 MG/2 ML VIAL (J2250) As Ordered ONE (07:17)
[2018-06-15] MEDS ORDERED: fentaNYL 100 MCG/2 ML INJECTION (J3010) As Ordered ONE (07:17)
[2018-06-15] MEDS ORDERED: LIDOCAINE VISCOUS 2% SOLN 15ML UDC As Ordered ONE (07:20)
[2018-06-15] MEDS ORDERED: LIDOCAINE 2% INJ 100 MG/5 ML SDV (FOR ANES.) As Ordered ONE (07:20)
[2018-06-15] MEDS ORDERED: CETACAINE SPRAY 5GM As Ordered ONE (07:21)
[2018-06-15 08:40] VITALS: BP 153/85
--- NOTE | 2018-06-15 08:59 | T-ECHO ---
DATE OF PROCEDURE: 06/15/2018 REFERRING PHYSICIAN: Dr. Hernandez INDICATION: Cerebrovascular accident. PROCEDURE: Transesophageal echocardiogram. SURGEON: Phyllis Price MD HEAD OF ETHICS AND COMPLIANCE: ANESTHESIA: Alan Shin CRNA BRIEF HISTORY: Ms. Ellis is a 68-year-old female who presented with visual deficiency with left sided visual field defect. She was found to have multiple ischemic strokes. The suspicion was raised for a cardiac source of emboli and I was asked to perform transesophageal echocardiogram. I spoke with the patient the night before the procedure. I explained the rationale, potential findings and implications. She did sign appropriate consent. PROCEDURE NOTE: The procedure was performed in the operating room. The patient was in fasting condition. After appropriate identification and time out was taken, her posterior pharynx was anesthetized using viscous lidocaine and Cetacaine [place]. She was then positioned in left lateral decubitus position. A bite block and face oxygen mask was applied. After anesthesiology provided sufficient amount of sedation, a probe was inserted into the esophagus and later stomach without difficulty. After appropriate images were obtained, it was withdrawn. There were no immediate complications and patient tolerated the procedure well. FINDINGS: Left ventricle has normal systolic function. No segmental wall motion abnormalities are appreciated. Right ventricle also appears to have normal contractility. Both atria appear grossly normal. Mitral valve is intact. It has normal mobility and there is only trace mitral insufficiency by color Doppler imaging. The aortic valve has three leaflets. It is normally mobile. No vegetations or abnormalities are seen. No stenosis or insufficiency is identified by color Doppler imaging. The tricuspid valve is pliable and appears normal. Trace TR is noted. The same applies for pulmonic valve. Left atrial appendage is relatively large. It is free of thrombi and has normal flow. There is normal flow in both left sided and right sided pulmonic veins. There is double layer segment of the interatrial septum. This probably represents partial non-fusion of septum secundumpreum. Even though there is flow in the space between the layers, there is no communication with the right atrium. We did 3D imaging rendering that clearly shows the abnormality quite nicely. There was no evidence for left to right or right to left shunt after injection of agitated saline. There is atherosclerosis of aortic arch and segment of descending aorta, but no ulcerations or protruding thrombi are seen. CONCLUSIONS: 1. Preserved LV systolic function. 2. Preserved RV systolic function. 3. No significant valvular abnormalities. 4. Left atrial appendage is free of thrombi. 5. Normal flow in the left and right sided pulmonary veins. 6. Atherosclerosis of aortic arch and descending aorta. 7. Double layer to a small segment of atrial septum, probably representing remnant of septum secundum, but no evidence for shunt. COMMENT: Subacute bacterial endocarditis (SBE) prophylaxis is not recommended.
[2018-06-15 09:42] VITALS: BP 153/85
[2018-06-15] MEDS: amLODIPine 10 MG TAB PO SCH (09:42)
[2018-06-15] MEDS: SPIRONOLACTONE 12.5MG PER 1/2 TABLET PO SCH (09:42)
[2018-06-15] MEDS: ASPIRIN 81 MG ENTERIC TAB PO SCH (09:42)
[2018-06-15] MEDS: NICOTINE 21MG/24HR 1 EA TRANSDERMAL TD SCH (09:43)
[2018-06-15] MEDS ORDERED: NICO21PAT TD (10:12)
[2018-06-15] MEDS ORDERED: ASPI81TAEC PO (10:12)
[2018-06-15] MEDS ORDERED: SPIR-10 PO (10:12)
[2018-06-15] MEDS ORDERED: ATOR1TAB21 PO (10:12)
[2018-06-15] MEDS ORDERED: POTA1TAB14 PO (10:20)
--- NOTE | 2018-06-16 20:34 | DSES ---
DATE OF ADMISSION: 06/13/2018 DATE OF DISCHARGE: 06/15/2018 DISCHARGE DIAGNOSIS: Acute ischemic strokes of the right occipitoparietal areas. SECONDARY DIAGNOSES: 1. Hypertension. 2. Tobacco abuse. 3. History of breast cancer. 4. History of anal cancer. 5. Hypothyroidism. HOSPITAL COURSE: The patient is a 68-year-old female who presented with visual loss of her left visual field, telling me that she was unable to see parts of a word. She stated that had been happening for 2 days, and that it sneaked up on her rather abruptly without her noticing at first. She was evaluated in the emergency room (ER), and there was concern for a possible cerebrovascular accident (CVA). As such, she did have an MRI of the brain, which revealed multiple small acute nonhemorrhagic infarcts, right occipital and right parietal, suggesting posterior circulation embolic process. Minimal mass effect. She subsequently did have an MRA of the brain, which was essentially an unremarkable angiogram of the grayling of [place] and intracranial vertebrobasilar system. She also did undergo a vascular ultrasound that revealed less than 50% stenosis of her carotids bilaterally. She initially had an echocardiogram that revealed normal left ventricular (LV) size and function and grade 1 diastolic dysfunction but no evidence of significant valvular disease. No obvious explanation for her CVA. She subsequently underwent a transesophageal echocardiogram (RICKIE) that revealed no atrial appendages and no thrombi. No patent foramen ovale (PFO). No evidence of shunt. She was seen in consultation by Dr. Juarez of neurology who recommended initiating aspirin 81 mg as well as statin therapy. She had some permissive hypertension for the first 48 hours with a soft systolic of 140-180. She was monitored on telemetry for the duration of her hospitalization that did not reveal any arrhythmia. She had a thyroid-stimulating hormone (TSH) within normal limits, hemoglobin A1c within normal limits. There was no clear etiology identified for her CVA during this stay. SUBJECTIVE: The patient tells me that she is feeling fine. She has cleared physical therapy and occupational therapy, she informs me. She tells me she is eager to go home. OBJECTIVE: VITAL SIGNS: Temperature 97.8, pulse 71, respiratory rate 18, blood pressure 153/85, oxygen saturation 98% on room air. GENERAL: She is a frail female who appears older than stated age, lying in bed. She does not appear to be in any acute distress. She has some bitemporal wasting. Appears older than her stated age. Moist mucous membranes. No elevation in central venous pressure (CVP). CARDIOVASCULAR: S1, S2, regular. RESPIRATORY: Quite clear. ABDOMEN: Benign. EXTREMITIES: No clubbing, cyanosis, or edema. There is some left hemianopsia on visual field testing. LABORATORY STUDIES: WBC 9.8, hemoglobin 11.6, platelet count 494. Chemistry panel: Sodium 137, potassium 4.3, chloride 106, bicarbonate 25, BUN 7, creatinine 0.8. IMAGING: As outlined above. ASSESSMENT AND PLAN: This is a 68-year-old female with acute ischemic stroke concerning for embolic phenomenon. 1. Acute ischemic stroke in the right parieto-occipital area, resulting in left-sided hemianopsia, possibly from embolic phenomenon. Neurology's and cardiology's help has been greatly appreciated. Given that her workup has been thus far negative, we are attempting to optimize her secondary prevention. I will increase her spironolactone upon discharge and titrate down her regular potassium dosing in order to optimize her blood pressure now. She is also on Norvasc. We have started her on aspirin as well as a statin. Her thyroid disease is well controlled. No evidence of diabetes. I have informed her that I think she would benefit from outpatient Holter monitoring, as there is no clear etiology for her embolic phenomenon. It was determined in moving forward that she should avoid any and all tobacco use, as she is still at risk for repeat infarcts. She has been cleared by physical therapy and occupational therapy and did have a good conversation regarding her care. 2. Hypertension. As outlined above. 3. History of breast cancer, stable. 4. History of anal cancer, stable. 5. Tobacco abuse. Cessation counseling provided. Will be provided with nicotine patches upon discharge. 6. Hypothyroidism. She is continued on her Synthroid. DISPOSITION: The patient is being discharged home to the care of her daughter, who is flying into town. She is to followup with her primary care physician (PCP) within 7 days, followup with cardiology within 1 month, followup with neurology within 2 weeks. Her activity is as tolerated. Her diet is as prior to admission. DISCHARGE MEDICATIONS: - aspirin 81 mg daily - atorvastatin 40 mg at bedtime - nicotine patch 21 mg transdermally daily - potassium chloride 40 mEq daily - spironolactone 25 mg daily - acetaminophen and codeine 300/30 one tablet every 6 hours as needed for pain - amlodipine 10 mg daily - vitamin D 50,000 units once a week on Tuesdays - levothyroxine 50 mcg daily - zolpidem 5 mg at bedtime Greater than 30 minutes spent organizing disposition. Of note, the patient's daughter did call early on in the hospitalization and insisted on emergent transfer to [facility], stating that he knew providers at that facility, and that the patient had a bed and was accepted. Upon calling those providers and speaking with them directly, Dr. Chi and , they were unaware of the patient. They had seen her once previously. They agreed and saw no indication for a higher level of care or need for transfer. The transfer center had not been made aware of the patient, and the patient does not have any complicated cardiac history. edited: 06/17/2018 0734 barrie JACOBSON
== END 2018-06-15 18:51 | disposition home or self-care (01) | DRG 66 ==
LOC: M ED 20:54 → M ED INP 06-13 02:05 → M PCU 06-13 03:31
PROVIDERS: ADMIT Hospitalist; ATTEND Internal Medicine
PROC: B246ZZ4 Ultrasonography of Right and Left Heart, Transesophageal (ICD-10-PCS; principal; 2018-06-15 07:30)
DX: I63.59 Cerebral infarction due to unspecified occlusion or stenosis of other cerebral artery (principal); I10 Essential (primary) hypertension; F17.210 Nicotine dependence, cigarettes, uncomplicated; H53.8 Other visual disturbances; M54.2 Cervicalgia; Z85.048 Personal history of other malignant neoplasm of rectum, rectosigmoid junction, and anus; Z92.21 Personal history of antineoplastic chemotherapy; Z92.3 Personal history of irradiation; Z88.2 Allergy status to sulfonamides; Z79.899 Other long term (current) drug therapy; Z85.3 Personal history of malignant neoplasm of breast; Z90.13 Acquired absence of bilateral breasts and nipples